=== PATIENT | male | born 1975 | race Hispanic/Latino ===

== ENCOUNTER 2017-06-17 11:05 | Inpatient (IN) | payer BC ==
[2017-06-17 11:17] VITALS: BMI 20.9
--- NOTE | 2017-06-17 11:30 | ED PDOC ---
HPI: General Adult Time Seen by Provider: 06/17/17 11:10 Chief Complaint (Provider): Dizziness History Per: Patient History/Exam Limitations: no limitations Onset/Duration Of Symptoms: Days (Yesterday) Have you had recent travel within the past 21 days to any of the following countries: [place], [place], [place] or [place]?: No Current Symptoms Are (Timing): Still Present Additional Complaint(s): Palpitations, light-headed, headache mild frontal all off and on. No chest pain. Feels dyspnea off and on. No abd pain, nausea, vomit, diarrhea. No leg pain, dysuria. No long distance travel, leg pain, hormone tx. Headaches not the worst in his life. No neck pain. No back pain. No numbness, tingles. Noted his bp in the 140 yesterday and today. Past Medical History Reviewed: Nursing Documentation, Vital Signs Vital Signs: Last Vital Signs Temp 98.1 F 06/17/17 11:08 Pulse 74 06/17/17 11:08 Resp 19 06/17/17 11:08 BP 136/85 06/17/17 11:08 Pulse Ox 92 L 06/17/17 11:32 - Medical History PMH: No Chronic Diseases - Surgical History Surgical History: No Surg Hx - Family History Family History: States: Unknown Family Hx - Living Arrangements Living Arrangements: With Family - Social History Current smoker - smoking cessation education provided: No Alcohol: Occasional Drugs: Denies - Allergies Allergies/Adverse Reactions: Allergies Allergy/AdvReac Type Severity Reaction Status Date / Time No Known Allergies Allergy Verified 06/17/17 11:26 Review of Systems ROS Statement: Except As Marked, All Systems Reviewed And Found Negative Constitutional: Positive for: Weakness (general) Cardiovascular: Positive for: Palpitations Respiratory: Positive for: Shortness of Breath Neurological: Positive for: Weakness, Dizziness Physical Exam - Reviewed Nursing Documentation Reviewed: Yes Vital Signs Reviewed: Yes - Physical Exam Appears: Positive for: Non-toxic, No Acute Distress Skin: Positive for: Normal Color, Warm, DRY Eye Exam: Positive for: EOMI, Normal appearance, PERRL ENT: Positive for: Normal ENT Inspection Neck: Positive for: Normal, Painless ROM, Supple Cardiovascular/Chest: Positive for: Regular Rate, Rhythm. Negative for: Edema Respiratory: Positive for: CNT, Normal Breath Sounds Gastrointestinal/Abdominal: Positive for: Normal Exam, Bowel Sounds, Soft. Negative for: Tenderness Back: Positive for: Normal Inspection. Negative for: L CVA Tenderness, R CVA Tenderness Extremity: Positive for: Normal ROM. 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 Negative for: Motor/Sensory Deficits, Aphasia, Facial Droop - Laboratory Results Result Diagrams: 06/17/17 11:39 06/17/17 11:39 Interpretation Of Abn Labs: no acute - ECG ECG: Positive for: Interpreted By Me, Viewed By Me ECG Rhythm: Positive for: Normal QRS, Normal ST Segment, Sinus Rhythm O2 Sat by Pulse Oximetry: 92 - CT Scan/US head Other Rad Studies (CT/US): Read By Radiologist Other Rad Interpretation: no acute - Progress ED Course And Treament: 1335: Stable. AAOx3. Feels off and on dizzy still and epigastric discomfort. Will give meds and consider admit. 1351: Spoke with Dr. Calero. Will admit tele obs. Disposition - Clinical Impression Clinical Impression: Palpitations, Dizziness - Patient ED Disposition Is Patient to be Admitted: Yes Counseled Patient/Family Regarding: Studies Performed, Diagnosis - Disposition Disposition Time: 13:59 Condition: FAIR - Pt Status Changed To: Hospital Disposition Of: Observation - POA Present On Arrival: None
[2017-06-17] MEDS ORDERED: Sodium Chloride 0.9% 1,000 ML IV STA (11:31)
[2017-06-17 11:50] LABS: BASO % 0.4 % (0.0-2.0); EOS # 0.2 K/uL (0.0-0.7); HEMATOCRIT 48.3 % (35.0-51.0); LYMPH # 1.4 K/uL (1.0-4.3); MEAN CELL VOLUME 88.7 fl (80.0-94.0); MEAN CORPUSCULAR HEMOGLOBIN 28.5 pg (27.0-31.0); MEAN CORPUSCULAR HGB CONC 32.1 g/dL (33.0-37.0); MEAN PLATELET VOLUME 7.5 fl (7.2-11.7); MONO # 0.7 K/uL (0.0-0.8); MONO % 10.2 % (0.0-10.0); NEUT # 4.2 K/uL (1.8-7.0); NEUT % 65.4 % (50.0-75.0); NRBC % 0.1 % (0.0-0.0); RED CELL DISTRIBUTION WIDTH 13.8 % (11.5-14.5); WHITE BLOOD COUNT 6.5 K/uL (4.8-10.8)
[2017-06-17 12:01] LABS: ALB/GLOB RATIO 1.6 (1.0-2.1); ALKALINE PHOSPHATASE 82 U/L (38-126); ALT/SGPT 58 U/L (21-72); AST/SGOT 23 U/L (17-59); BILIRUBIN,TOTAL 0.4 mg/dl (0.2-1.3); BLOOD UREA NITROGEN 14 mg/dl (9-20); CALCIUM 9.5 mg/dL (8.4-10.2); CARBON DIOXIDE 22 mmol/L (22-30); CHLORIDE 107 mmol/L (98-107); GFR AFRICAN-AMERICAN > 60; GLUCOSE,RANDOM 120 mg/dL (75-110); SODIUM 143 mmol/l (132-148); TOTAL PROTEIN 7.8 G/DL (6.3-8.2)
--- NOTE | 2017-06-17 12:31 | CT ---
PROCEDURE: CT HEAD WITHOUT CONTRAST. HISTORY: headache COMPARISON: None available. TECHNIQUE: Axial computed tomography images were obtained through the head/brain without intravenous contrast. Radiation dose: Total exam DLP = 767.40 mGy-cm. This CT exam was performed using one or more of the following dose reduction techniques: Automated exposure control, adjustment of the mA and/or kV according to patient size, and/or use of iterative reconstruction technique. FINDINGS: HEMORRHAGE: No intracranial hemorrhage. BRAIN: No mass effect or edema. No atrophy or chronic microvascular ischemic changes. VENTRICLES: Unremarkable. No hydrocephalus. CALVARIUM: Unremarkable. PARANASAL SINUSES: Unremarkable as visualized. No significant inflammatory changes. MASTOID AIR CELLS: Unremarkable as visualized. No inflammatory changes. OTHER FINDINGS: None. IMPRESSION: Normal CT of the Head. No intracranial mass, hemorrhage or evidence of acute infarct.
[2017-06-18 05:26] LABS: T4 6.67 ug/dl (5.5-11.0)
[2017-06-18 05:39] LABS: THYROID STIMULATING HORMONE 0.02 mIU/ML (0.46-4.68)
--- NOTE | 2017-06-18 07:48 | CARD ---
APPROVED REPORT EKG Measurement Heart [id number] <Conclusion> Normal sinus rhythm Normal ECG
--- NOTE | 2017-06-18 07:56 | CP.PCM.HP ---
History of Present Illness - History of Present Illness History of Present Illness: 41 year old male with no past medical history presented to ED with complaints of palpitations, dyspnea and lightheadedness. He endorses symptoms began about one month ago, but were worsened one day prior to admission. He is physically active and frequents the gym and boxes. He states about a month ago he noticed he was not able to complete warmup and had shortness of breath while boxing. Patient also notes, palpitations shortness of breath and dizziness with associated abdominal discomfort. No alleviating factors. No unintentional weight loss or changes in appetite. He was seen by his PCP, Dr. Gonzalez and had EKG done which revealed some abnormalities as per the patient. He states that he was referred to cardiology, Dr. Randi Shine, which he had not seen as outpatient. No personal or family hx of cardiac or thyroid disease. PMH: denies Medications: none Allergies: NKDA Present on Admission - Present on Admission Any Indicators Present on Admission: No Review of Systems - Constitutional Constitutional: absent: Anorexia, Night Sweats, Weight Loss - EENT Eyes: absent: Blurred Vision, Change in Vision, Photophobia, Spots in Vision Ears: Dizziness. absent: Ear Pain, Disequilibrium Nose/Mouth/Throat: absent: Nasal Congestion, Nasal Discharge - Cardiovascular Cardiovascular: Dyspnea, Palpitations. absent: Chest Pain, Edema, Pedal Edema - Respiratory Respiratory: Dyspnea. absent: Cough - Gastrointestinal Gastrointestinal: absent: Constipation, Diarrhea, Nausea, Vomiting Additional comments: abdominal discomfort - Musculoskeletal Musculoskeletal: absent: Abnormal Gait, Muscle Cramps, Myalgias, Numbness, Tingling - Integumentary Integumentary: absent: Change in Hair, Dry Skin, Rash - Neurological Neurological: Dizziness. absent: Numbness, Loss of Vision, Syncope, Weakness - Psychiatric Psychiatric: absent: Anxiety, Change in Appetite - Endocrine Endocrine: Palpitations. absent: Cold Intolorance, Excessive Sweating - Hematologic/Lymphatic Hematologic: As Per HPI Past Patient History - Past Medical History & Family History Past Medical History?: No - Past Social History Smoking Status: Former Smoker - MUSCULOSKELETAL/RHEUMATOLOGICAL Hx Falls: No - PSYCHIATRIC Hx Substance Use: No - SURGICAL HISTORY Hx Surgeries: No - ANESTHESIA Hx Anesthesia: No (no sx hx) Meds Allergies/Adverse Reactions: Allergies Allergy/AdvReac Type Severity Reaction Status Date / Time No Known Allergies Allergy Verified 06/17/17 11:26 Physical Exam - Constitutional Appears: Non-toxic - Eye Exam Eye Exam: Normal appearance - ENT Exam ENT Exam: Mucous Membranes Moist - Neck Exam Neck exam: Positive for: Normal Inspection - Respiratory Exam Respiratory Exam: Clear to Auscultation Bilateral, NORMAL BREATHING PATTERN - Cardiovascular Exam Cardiovascular Exam: REGULAR RHYTHM, RRR, +S1, +S2. absent: Diastolic murmur, Systolic Murmur - GI/Abdominal Exam GI & Abdominal Exam: Normal Bowel Sounds, Soft. absent: Distended, Guarding, Tenderness - Extremities Exam Extremities exam: Positive for: normal inspection. Negative for: pedal edema - Neurological Exam Neurological exam: Alert, CN II-XII Intact, Normal Gait, Oriented x3 - Psychiatric Exam Psychiatric exam: Normal Affect, Normal Mood - Skin Skin Exam: Dry, Intact, Normal Color, Warm Results - Vital Signs Recent Vital Signs: Last Vital Signs Temp 98.3 F 06/18/17 05:12 Pulse 72 06/18/17 05:12 Resp 18 06/18/17 05:12 BP 115/77 06/18/17 05:12 Pulse Ox 99 06/18/17 05:12 - Labs Result Diagrams: 06/17/17 11:39 06/17/17 11:39 Labs: Laboratory Results - last 24 hr 06/17/17 06/17/17 06/17/17 11:39 11:39 13:43 WBC 6.5 RBC 5.45 Hgb 15.5 Hct 48.3 MCV 88.7 MCH 28.5 MCHC 32.1 L RDW 13.8 Plt Count 294 MPV 7.5 Neut % (Auto) 65.4 Lymph % (Auto) 21.0 Nash % (Auto) 10.2 H Eos % (Auto) 3.0 Baso % (Auto) 0.4 Neut # 4.2 Lymph # 1.4 Nash # 0.7 Eos # 0.2 Baso # 0.0 Sodium 143 Potassium 4.0 Chloride 107 Carbon Dioxide 22 Anion Gap 18 BUN 14 Creatinine 0.7 L Est GFR ( Amer) > 60 Est GFR (Non-Af Amer) > 60 Random Glucose 120 H Calcium 9.5 Total Bilirubin 0.4 AST 23 ALT 58 Alkaline Phosphatase 82 Troponin I < 0.0120 Total Protein 7.8 Albumin 4.8 Globulin 3.0 Albumin/Globulin Ratio 1.6 Triglycerides Cholesterol LDL Cholesterol Direct HDL Cholesterol Lipase 52 Free T4 Thyroxine (T4) Total T3 TSH 3rd Generation 06/17/17 06/17/17 06/17/17 16:35 17:57 23:36 WBC RBC Hgb Hct MCV MCH MCHC RDW Plt Count MPV Neut % (Auto) Lymph % (Auto) Nash % (Auto) Eos % (Auto) Baso % (Auto) Neut # Lymph # Nash # Eos # Baso # Sodium Potassium Chloride Carbon Dioxide Anion Gap BUN Creatinine Est GFR ( Amer) Est GFR (Non-Af Amer) Random Glucose Calcium Total Bilirubin AST ALT Alkaline Phosphatase Troponin I < 0.0120 < 0.0120 Total Protein Albumin Globulin Albumin/Globulin Ratio Triglycerides Cholesterol LDL Cholesterol Direct HDL Cholesterol Lipase Free T4 Thyroxine (T4) Total T3 TSH 3rd Generation < 0.02 L 06/18/17 06/18/17 04:30 04:30 WBC RBC Hgb Hct MCV MCH MCHC RDW Plt Count MPV Neut % (Auto) Lymph % (Auto) Nash % (Auto) Eos % (Auto) Baso % (Auto) Neut # Lymph # Nash # Eos # Baso # Sodium Potassium Chloride Carbon Dioxide Anion Gap BUN Creatinine Est GFR ( Amer) Est GFR (Non-Af Amer) Random Glucose Calcium Total Bilirubin AST ALT Alkaline Phosphatase Troponin I Total Protein Albumin Globulin Albumin/Globulin Ratio Triglycerides 85 Cholesterol 160 LDL Cholesterol Direct 83 HDL Cholesterol 47 Lipase Free T4 0.91 Thyroxine (T4) 6.67 Total T3 1.51 TSH 3rd Generation 0.02 L Assessment & Plan (1) Palpitations Assessment and Plan: 41 year old male with no past medical history, admitted with palpitations, dizziness and shortness of breath. On admission, patients EKG and vital signs were WNL. He appears much better today than on admission. In ED patient appeared pale and uncomfortable. Thyroid studies were done and revealed very suppressed TSH. All other thyroid labs have been negative, u/s was negative. Cardiology evaluated the patient, EKG and Echocardiogram were unremarkable. Symptoms are likely related to thyroid disease. Endocrinology consult: additional thyroid studies ordered. Continue to monitor patient Case d/w Dr. Shine and Dr. Garner Status: Acute (2) Dizziness Assessment and Plan: improved, likely secondary to hyperthyroidism Status: Acute (3) Subclinical hyperthyroidism Assessment and Plan: appears to be etiology of patients symptoms -started pt on tapazole 5mg TID -Tapazole 10 mg daily upon dishcarge Status: Acute (4) DVT prophylaxis Assessment and Plan: scds Status: Acute Comment: scds
[2017-06-18 08:40] LABS: T3 UPTAKE 37.7 % (23.0-41.0); T4 7.1 ug/dl (5.5-11.0)
--- NOTE | 2017-06-18 10:37 | CP.PCM.CON ---
History of Present Illness - History of Present Illness History of Present Illness: This 41-year-old male came into the hospital after experiencing a sense of lightheadedness for a few days. This was not connected to any physical activity or movements of his head or eyes. The patient also reports that he had taken up going to a gym and boxing. He had recently discovered during warmup he used to get fatigued and had to rest. He had not noticed this a few weeks back. He denies any weight loss. He had recently experienced palpitations upon minimal physical activity. He denies any chronic illness in the past and denies hypertension or diabetes and he has never been a smoker. He has not been on any medications. Physical examination shows a young pleasant man well-built and well-nourished. Alert awake and coherent. Afebrile with a pulse rate of 64 bpm and regular and a blood pressure of 118/70 mmHg. His jugular venous pressure was not elevated and there was no edema hour his lower extremity. His pedal pulses were well felt. There were no carotid bruits. The apex was palpable in the 6 to heaving in character. The first and second heart sounds were normal. There was no murmur no gallop no rales. His abdomen was soft liver and spleen are not palpable. His electro-cardiogram showed sinus rhythm with a normal EKG pattern. His echocardiogram showed a normal-sized left ventricle with normal left ventricular systolic function. No significant valvulopathy was detected. His lab data showed a depressed TSH with normal free T4 Impression: No cardiovascular abnormality has been detected so far. Abnormal TSH level may indicate hyperthyroidism which an box toe stitcher is about to address. If patient's symptoms persist even after resolution of abnormal thyroid function he will require a stress test to evaluate his effort tolerance and is response to physical activity. I have explained this to the patient. Past Patient History - Past Medical History & Family History Past Medical History?: No - Past Social History Smoking Status: Former Smoker - MUSCULOSKELETAL/RHEUMATOLOGICAL Hx Falls: No - PSYCHIATRIC Hx Substance Use: No - SURGICAL HISTORY Hx Surgeries: No - ANESTHESIA Hx Anesthesia: No (no sx hx) Meds Allergies/Adverse Reactions: Allergies Allergy/AdvReac Type Severity Reaction Status Date / Time No Known Allergies Allergy Verified 06/17/17 11:26 - Medications Medications: Current Medications Acetaminophen (Tylenol 325mg Tab) 650 mg PO Q6 PRN PRN Reason: Headache Famotidine (Pepcid) 20 mg PO DAILY [facility] Last Admin: 06/18/17 08:24 Dose: 20 mg Meclizine HCl (Antivert) 12.5 mg PO BID PRN PRN Reason: Dizziness Results - Vital Signs Recent Vital Signs: Last Vital Signs Temp 98.2 F 06/18/17 08:00 Pulse 57 L 06/18/17 08:00 Resp 20 06/18/17 08:00 BP 121/82 06/18/17 08:00 Pulse Ox 98 06/18/17 08:00 - Labs Result Diagrams: 06/17/17 11:39 06/17/17 11:39 Labs: Laboratory Results - last 24 hr 06/17/17 06/17/17 06/17/17 11:39 11:39 13:43 WBC 6.5 RBC 5.45 Hgb 15.5 Hct 48.3 MCV 88.7 MCH 28.5 MCHC 32.1 L RDW 13.8 Plt Count 294 MPV 7.5 Neut % (Auto) 65.4 Lymph % (Auto) 21.0 Powell % (Auto) 10.2 H Eos % (Auto) 3.0 Baso % (Auto) 0.4 Neut # 4.2 Lymph # 1.4 Powell # 0.7 Eos # 0.2 Baso # 0.0 Sodium 143 Potassium 4.0 Chloride 107 Carbon Dioxide 22 Anion Gap 18 BUN 14 Creatinine 0.7 L Est GFR ( Amer) > 60 Est GFR (Non-Af Amer) > 60 Random Glucose 120 H Calcium 9.5 Total Bilirubin 0.4 AST 23 ALT 58 Alkaline Phosphatase 82 Troponin I < 0.0120 Total Protein 7.8 Albumin 4.8 Globulin 3.0 Albumin/Globulin Ratio 1.6 Triglycerides Cholesterol LDL Cholesterol Direct HDL Cholesterol Lipase 52 Free T4 Thyroxine (T4) Total T3 T3 Uptake TSH 3rd Generation 06/17/17 06/17/17 06/17/17 16:35 17:57 23:36 WBC RBC Hgb Hct MCV MCH MCHC RDW Plt Count MPV Neut % (Auto) Lymph % (Auto) Powell % (Auto) Eos % (Auto) Baso % (Auto) Neut # Lymph # Powell # Eos # Baso # Sodium Potassium Chloride Carbon Dioxide Anion Gap BUN Creatinine Est GFR ( Amer) Est GFR (Non-Af Amer) Random Glucose Calcium Total Bilirubin AST ALT Alkaline Phosphatase Troponin I < 0.0120 < 0.0120 Total Protein Albumin Globulin Albumin/Globulin Ratio Triglycerides Cholesterol LDL Cholesterol Direct HDL Cholesterol Lipase Free T4 Thyroxine (T4) Total T3 T3 Uptake TSH 3rd Generation < 0.02 L 06/18/17 06/18/17 06/18/17 04:30 04:30 08:05 WBC RBC Hgb Hct MCV MCH MCHC RDW Plt Count MPV Neut % (Auto) Lymph % (Auto) Powell % (Auto) Eos % (Auto) Baso % (Auto) Neut # Lymph # Powell # Eos # Baso # Sodium Potassium Chloride Carbon Dioxide Anion Gap BUN Creatinine Est GFR ( Amer) Est GFR (Non-Af Amer) Random Glucose Calcium Total Bilirubin AST ALT Alkaline Phosphatase Troponin I Total Protein Albumin Globulin Albumin/Globulin Ratio Triglycerides 85 Cholesterol 160 LDL Cholesterol Direct 83 HDL Cholesterol 47 Lipase Free T4 0.91 Thyroxine (T4) 6.67 7.10 Total T3 1.51 1.55 T3 Uptake 37.7 TSH 3rd Generation 0.02 L
--- NOTE | 2017-06-18 11:10 | CARD ---
APPROVED REPORT EXAM: Two-dimensional and M-mode echocardiogram with Doppler and color Doppler. Other Information Quality : GoodRhythm : NSR INDICATION Chest Pain 2D DIMENSIONS IVSd0.49 (0.7-1.1cm)LVDd5.23 (3.9-5.9cm) LVOT Diameter2.14 (1.8-2.4cm)PWd0.74 (0.7-1.1cm) IVSs1.06 (0.8-1.2cm)LVDs3.40 (2.5-4.0cm) FS (%) 34.9 %PWs1.19 (0.8-1.2cm) M-Mode DIMENSIONS Left Atrium (MM)3.27 (2.5-4.0cm)IVSd0.81 (0.7-1.1cm) Aortic Root2.94 (2.2-3.7cm)LVDd5.16 (4.0-5.6cm) Aortic Cusp Exc.1.96 (1.5-2.0cm)PWd0.74 (0.7-1.1cm) IVSs1.19 cmFS (%) 33 % LVDs3.44 (2.0-3.8cm)PWs1.10 cm Mitral Valve MV E Obpzmqlw91.0cm/sMV DECEL [id number] A Qicnychd68.2cm/s MV OCJ65ocX/A ratio1.2MVA (PHT)4.31cm2 TDI E/Lateral E'0.0E/Medial E'0.0 Pulmonary Valve PV Peak Vbyiiyqr30.5cm/s LEFT VENTRICLE The left ventricle is normal size. There is normal left ventricular wall thickness. Left ventricle systolic function is normal. The Ejection Fraction is 60-65%. There is normal LV segmental wall motion. The left ventricular diastolic function is normal. RIGHT VENTRICLE The right ventricle is normal size. There is normal right ventricular wall thickness. The right ventricular systolic function is normal. ATRIA The left atrium size is normal. The right atrium size is normal. AORTIC VALVE The aortic valve is normal in structure. No aortic regurgitation is present. There is no aortic valvular stenosis. MITRAL VALVE The mitral valve is normal in structure. There is no evidence of mitral valve prolapse. There is no mitral valve stenosis. Mitral regurgitation is trace. TRICUSPID VALVE The tricuspid valve is normal in structure. There is no tricuspid valve regurgitation noted. PULMONIC VALVE The pulmonary valve is normal in structure. There is no pulmonic valvular regurgitation. GREAT VESSELS The aortic root is normal in size. The IVC is normal in size and collapses >50% with inspiration. PERICARDIAL EFFUSION The pericardium appears normal. <Conclusion> The left ventricle is normal size. There is normal left ventricular wall thickness. There is normal LV segmental wall motion. Left ventricle systolic function is normal. The Ejection Fraction is 60-65%. The left ventricular diastolic function is normal.
--- NOTE | 2017-06-18 15:27 | US ---
HISTORY: r/o goiter TECHNIQUE: Sonographic evaluation of the thyroid gland. COMPARISON: Not available FINDINGS: RIGHT LOBE: Measures 5.0 x 1.2 x 1.2 cm. Normal echotexture and flow. Nodules: None LEFT LOBE: Measures 4.0 x 0.8 x 1.4 cm. Normal echotexture and flow. Nodules: None ISTHMUS: Measures 0.1 cm. Normal echotexture and flow. Nodules: None OTHER FINDINGS: None . IMPRESSION: Unremarkable thyroid sonogram.
[2017-06-18] MEDS: methIMAzole 5 MG TAB PO SCH (17:00)
[2017-06-19 00:31] VITALS: RESP 18
--- NOTE | 2017-06-19 04:46 | CON ---
ENDOCRINOLOGY CONSULTATION DATE: HISTORY OF PRESENT ILLNESS: This is a 41-year-old male with no apparent medical history presenting here with progressively worsening palpitations and supervening dizziness and lightheadedness, worse on the day of admission and is now being referred for evaluation of abnormal thyroid function studies. PAST MEDICAL HISTORY: Essentially unremarkable. MEDICATIONS: Has no medications otherwise at this time. SOCIAL HISTORY: The patient has supportive family. No known substance use. 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 FAMILY HISTORY: No known thyroid endocrinopathy. REVIEW OF SYSTEMS: Admits to generalized body weakness with easy fatigability and tiredness and suboptimal energy level. Also admits to progressively worsening dizziness and lightheadedness especially on the day of admission. Admits to precordial chest pain with palpitations and progressive shortness of breath, initially with exertion and then at rest with occasional paroxysmal nocturnal dyspnea. His oral intake has been variable with nausea, dyspepsia, and vague upper abdominal pain. Also admits to occasional hyperdefecation. PHYSICAL EXAMINATION: NECK: Supple. Thyroid gland shows diffuse thyromegaly which is smooth and nontender and moves with swallowing as noted. There are no thyroid bruits of note. LABORATORY DATA: Lab work showed that total T4 is 7.10 with a T3 of 1.55 and a free T4 of 0.91 and a TSH of 0.02. ASSESSMENT: This is a 41-year-old male with subclinical hyperthyroidism, most likely related to underlying Graves disease with concomitant diffuse toxic goiter and no overt compressive or metabolic symptoms thereof. PLAN OF MANAGEMENT: As discussed with the patient is that we will keep him overnight to observe his initial response to the Tapazole medication that is given. We will initiate Tapazole given as 5 mg p.o. t.i.d. *------*. We will observe his metabolic and clinical response, and *------* discharge tomorrow morning as indicated. We will discuss with the patient regarding the need for outpatient followup and dose adjustment as indicated. We will obtain a thyroid ultrasound to fully delineate the presence of underlying toxic goiter. We will follow up with you. Andra Garner MD
[2017-06-19 05:25] VITALS: O2SAT 100
[2017-06-19 06:34] LABS: POTASSIUM 4.1 MMOL/L (3.6-5.0)
[2017-06-19 06:41] LABS: ALB/GLOB RATIO 1.5 (1.0-2.1); ALKALINE PHOSPHATASE 68 U/L (38-126); ALT/SGPT 51 U/L (21-72); AST/SGOT 20 U/L (17-59); BILIRUBIN,TOTAL 0.4 mg/dl (0.2-1.3); BLOOD UREA NITROGEN 16 mg/dl (9-20); CALCIUM 9.1 mg/dL (8.4-10.2); CARBON DIOXIDE 26 mmol/L (22-30); CHLORIDE 106 mmol/L (98-107); GFR AFRICAN-AMERICAN > 60; GLUCOSE,RANDOM 107 mg/dL (75-110); SODIUM 143 mmol/l (132-148); TOTAL PROTEIN 7.2 G/DL (6.3-8.2)
[2017-06-19 06:47] LABS: T4 5.66 ug/dl (5.5-11.0)
[2017-06-19 07:01] LABS: THYROID STIMULATING HORMONE 0.04 mIU/ML (0.46-4.68)
--- NOTE | 2017-06-19 08:02 | CP.PCM.PN ---
Subjective - Date & Time of Evaluation Date of Evaluation: 06/19/17 Time of Evaluation: 08:00 - Subjective Subjective: Patient seen and examined with Dr. Calero No acute overnight events. Patient is feeling much better. No complaints. Started on Tapazole by Dr. Garner. Follow up thyroid labs, TSH remains low. Objective - Vital Signs/Intake and Output Vital Signs (last 24 hours): Temp Pulse Resp BP Pulse Ox 97.9 F 56 L 18 122/76 100 06/19/17 05:25 06/19/17 05:25 06/19/17 05:25 06/19/17 05:25 06/19/17 05:25 - Medications Medications: Current Medications Acetaminophen (Tylenol 325mg Tab) 650 mg PO Q6 PRN PRN Reason: Headache Famotidine (Pepcid) 20 mg PO DAILY [facility] Last Admin: 06/18/17 08:24 Dose: 20 mg Meclizine HCl (Antivert) 12.5 mg PO BID PRN PRN Reason: Dizziness Methimazole (Tapazole) 5 mg PO TID [facility] Last Admin: 06/18/17 17:00 Dose: 5 mg - Labs Labs: 06/17/17 11:39 06/19/17 04:20 - Constitutional Appears: Non-toxic, No Acute Distress - Head Exam Head Exam: ATRAUMATIC, NORMAL INSPECTION, NORMOCEPHALIC - Eye Exam Eye Exam: EOMI, Normal appearance, PERRL - Respiratory Exam Respiratory Exam: Clear to Ausculation Bilateral, NORMAL BREATHING PATTERN - Cardiovascular Exam Cardiovascular Exam: REGULAR RHYTHM, +S1, +S2. absent: Bradycardia, Tachycardia , Irregular Rhythm, Murmur - GI/Abdominal Exam GI & Abdominal Exam: Soft, Normal Bowel Sounds. absent: Tenderness - Extremities Exam Extremities Exam: Full ROM, Normal Capillary Refill, Normal Inspection. absent : Joint Swelling, Pedal Edema - Neurological Exam Neurological Exam: Alert, Awake, CN II-XII Intact, Normal Gait, Oriented x3 - Psychiatric Exam Psychiatric exam: Normal Affect, Normal Mood - Skin Skin Exam: Dry, Intact, Normal Color, Warm Assessment and Plan (1) Subclinical hyperthyroidism Assessment & Plan: 41 year old male with no past medical history, admitted with palpitations, dizziness and shortness of breath that have resolved. Feeling much better. Thyroid studies: low TSH, t3,t4 within normal limits, u/s thryoid was unremarkable. pending further workup. Cardiology consult noted and appreciated. EKG and Echocardiogram were unremarkable. Symptoms are likely related to thyroid disease. Endocrinology consult noted and appreciated. Started pt on tapazole 5mg TID. Tapazole 10 mg daily upon discharge. Status: Acute (2) Palpitations Status: Resolved (3) Dizziness Status: Resolved (4) DVT prophylaxis Assessment & Plan: scds Status: Acute
[2017-06-19] MEDS: methIMAzole 5 MG TAB PO SCH (08:43)
[2017-06-19 12:40] VITALS: BP 106/65; PULSE 62; TEMP 97.9
--- NOTE | 2017-06-19 17:10 | PN ---
ENDOCRINOLOGY FOLLOWUP NOTE LOCATION: He is in room 418. SUBJECTIVE: This is a 41-year-old male with recent onset of palpitations and precordial chest pain and currently being followed closely for metabolic management. He has been evaluated to a recent onset of subclinical hyperthyroidism as noted chemically and biochemically thereof. His latest chemistry shows a BUN of 16, sodium 143, potassium 4.1, chloride 106, CO2 of 26, glucose 107, and creatinine is 0.7. His repeat thyroid study showed a T4 of 5.66 with a TSH of 0.04 and a free T4 of 0.91. So, at this time, we will recommend a low-dose methimazole medication given as 10 mg once daily as ordered. We will titrate incremental as indicated to optimize metabolic control. He will follow with his medical doctor for outpatient medical and thyroid management. We would also recommend a thyroid ultrasound for outpatient testing to fully delineate the thyroid lobe dimensions. Andra Garner MD
[2017-06-22 17:48] LABS: TSI <89 % baseline (<140)
== END 2017-06-19 13:23 | disposition home or self-care (01) | DRG 645 ==
LOC: H.ER 11:05 → H.ERHOLD 14:00 → OBSVTOIN 14:00 → H.TEL 15:17
PROVIDERS: ADMIT Internal Medicine; ATTEND Internal Medicine
DX: E05.00 Thyrotoxicosis with diffuse goiter without thyrotoxic crisis or storm (principal)

== ENCOUNTER 2018-11-10 15:50 | Emergency (ER) | payer OTHER ==
[2018-11-10 15:50] VITALS: BMI 20.9
[2018-11-10] MEDS ORDERED: Sodium Chloride 0.9% 1,000 ML IV STA (16:38)
--- NOTE | 2018-11-10 16:52 | ED PDOC ---
HPI: Chest Pain Time Seen by Provider: 11/10/18 16:03 Chief Complaint (Nursing): Palpitations Chief Complaint (Provider): Palpitations History Per: Patient History/Exam Limitations: no limitations Onset/Duration Of Symptoms: Other (one month) Current Symptoms Are (Timing): Intermittent Episodes Additional Complaint(s): 43 year old male with hyperthyroidism presents to the ED for an evaluation of palpitations that is intermittent onset for one month. Today, while at work, the palpitations occurred again while sitting in the ED doing a 1:1 observation. Patient felt lightheaded and dizziness with sweats. He felt it was due to not eating so patient ate and the symptoms continued, worsening since onset. He further admits he has had a similar symptom in the past when he was diagnosed with hyperthyroidism in 2001. He was started on medication in the ED and the thyroid normalized so he was taken off the medications. He has not taken the medications for a year. He also suspects that he may have been given regular coffee rather than decaf today, and that he has also felt this way in the past from caffeine. Otherwise, he denies shortness of breath, chest pain or any recurrent illness. Of note, patient felt well prior to the onset of symptoms. PMD: non CPH Provider Past Medical History Reviewed: Historical Data, Nursing Documentation, Vital Signs Vital Signs: Last Vital Signs Temp Pulse 77 11/10/18 15:56 Resp 16 11/10/18 15:56 BP Pulse Ox - Medical History PMH: Hyperthyroidism - Surgical History Surgical History: No Surg Hx - Family History Family History: States: Unknown Family Hx - Social History Current smoker - smoking cessation education provided: No Alcohol: None Drugs: Denies - Home Medications Home Medications: Ambulatory Orders Medication Instructions Recorded methIMAzole [Tapazole] 10 mg PO DAILY #30 tab 06/19/17 Ibuprofen [Motrin] 600 mg PO TID 7 Days tab 04/04/18 - Allergies Allergies/Adverse Reactions: Allergies Allergy/AdvReac Type Severity Reaction Status Date / Time No Known Allergies Allergy Verified 11/10/18 15:56 Review of Systems ROS Statement: Except As Marked, All Systems Reviewed And Found Negative (As per HPI, otherwise negative) Constitutional: Positive for: Sweats. Negative for: Chills Cardiovascular: Positive for: Palpitations, Light Headedness. Negative for: Chest Pain Respiratory: Negative for: Shortness of Breath Neurological: Positive for: Dizziness Physical Exam - Reviewed Nursing Documentation Reviewed: Yes Vital Signs Reviewed: Yes - Physical Exam Appears: Positive for: Uncomfortable, In Acute Distress Head Exam: Positive for: ATRAUMATIC, NORMOCEPHALIC Skin: Positive for: Warm, Dry Eye Exam: Positive for: EOMI, PERRL ENT: Positive for: Pharynx Is (clear ), Other (tacky mucous membrane ) Neck: Positive for: Painless ROM, Supple Cardiovascular/Chest: Positive for: Regular Rate, Rhythm. Negative for: Murmur Respiratory: Positive for: Normal Breath Sounds. Negative for: Respiratory Distress Gastrointestinal/Abdominal: Positive for: Soft. Negative for: Tenderness Back: Positive for: Normal Inspection. Negative for: Decreased ROM Extremity: Positive for: Normal ROM. Negative for: Deformity Lymphatic: Negative for: Adenopathy Neurological/Psych: Positive for: Awake, Alert, Normal Tone, Oriented (x3). Negative for: Motor/Sensory Deficits - Laboratory Results Result Diagrams: 11/10/18 16:20 11/10/18 16:20 - ECG Pulse Ox Interpretation: Normal Medical Decision Making Medical Decision Making: Time: 16:03 Impression: Palpitations Differential Diagnosis: dehydration, electrolyte abnormalities, thyroid disorder, vertigo Plan: BBK type and screen EKG B-type natriuretic peptide CMP Free T4 Stat FT3 stat Magnesium Phosphorus T3 stat T4 stat Thyroid stimulating hormone ED urine dipstick CBC w/ differential PTT Prothrombin time Glucose, POC, Routine Normal Saline 1000 mls/hr IV insertion Scribe Attestation: Documented by Marva Nunez, acting as a scribe for Roberta Glover MD Provider Scribe Attestation: All medical record entries made by the Scribe were at my direction and personally dictated by me. I have reviewed the chart and agree that the record accurately reflects my personal performance of the history, physical exam, medical decision making, and the department course for this patient. I have also personally directed, reviewed, and agree with the discharge instructions and disposition. Disposition - Clinical Impression Clinical Impression: Palpitations, Hypokalemia Counseled Patient/Family Regarding: Studies Performed, Diagnosis, Need For Followup - Disposition Disposition: Routine/Home Disposition Time: 18:30 Condition: STABLE Additional Instructions: FOLLOWUP WITH YOUR DOCTOR TOMORROW FOR FURTHER EVALUATION Instructions: Hypokalemia (DC), Palpitations (DC) Forms: [facility] ED School/Work Excuse
[2018-11-10 17:33] LABS: BASO % 0.3 % (0.0-2.0); EOS % 0.5 % (0.0-4.0); HEMOGLOBIN 14.9 g/dL (12.0-18.0); LYMPH # 0.8 K/uL (1.0-4.3); LYMPH % 8.5 % (20.0-40.0); MEAN CELL VOLUME 88.1 fl (80.0-94.0); MEAN CORPUSCULAR HEMOGLOBIN 29.3 pg (27.0-31.0); MEAN CORPUSCULAR HGB CONC 33.2 g/dL (33.0-37.0); MEAN PLATELET VOLUME 7.5 fl (7.2-11.7); MONO # 0.4 K/uL (0.0-0.8); MONO % 4.6 % (0.0-10.0); NEUT # 8.2 K/uL (1.8-7.0); NEUT % 86.1 % (50.0-75.0); NRBC % 0.1 % (0.0-0.0); PLATELET COUNT 332 K/uL (130-400); RBC 5.11 Mil/uL (4.40-5.90); RED CELL DISTRIBUTION WIDTH 13.9 % (11.5-14.5); WHITE BLOOD COUNT 9.5 K/uL (4.8-10.8)
[2018-11-10 17:41] LABS: PROTHROMBIN TIME 11.1 Seconds (9.8-13.1)
[2018-11-10 17:42] LABS: ALB/GLOB RATIO 1.6 (1.0-2.1); ALBUMIN 4.7 g/dL (3.5-5.0); ALT/SGPT 33 U/L (21-72); AST/SGOT 22 U/L (17-59); BLOOD UREA NITROGEN 11 mg/dl (9-20); CALCIUM 9.3 mg/dL (8.4-10.2); GFR NON-AFRICAN AMERICAN > 60
[2018-11-10 17:43] LABS: PARTIAL THROMBOPLASTIN TIME 36.3 Seconds (25.6-37.1)
[2018-11-10] MEDS ORDERED: Potassium Chloride 20 mEq ER Tab PO STA (17:51)
[2018-11-10 18:00] LABS: B-TYPE NATRIURETIC PEPTIDE 26.5 pg/ml (0-450)
[2018-11-10] MEDS ORDERED: Potassium Chloride 20 mEq ER Tab PO ONE (18:10)
[2018-11-10 19:24] VITALS: BP 122/74; PULSE 67; RESP 18; TEMP 98.5; O2SAT 99
[2018-11-10 19:45] LABS: BANDS 2 % (0-2); EOSINOPHIL 2 % (0-7); LYMPHOCYTE 9 % (20-50); MONOCYTE 4 % (0-10); NEUTROPHIL 83 % (42-75); TOTAL CELLS COUNTED 100
[2018-11-10 19:46] LABS: PLATELET ESTIMATE NORMAL (NORMAL)
--- NOTE | 2018-11-11 08:59 | CARD ---
APPROVED REPORT Date of service: 11/10/2018 EKG Measurement Heart [id number] <Conclusion> Normal sinus rhythm with sinus arrhythmia Normal Electrocardiogram
== END 2018-11-10 19:22 | disposition home or self-care (01) ==
LOC: H.ER 15:50
DX: E87.6 Hypokalemia (principal); R00.2 Palpitations
CPT/HCPCS: 80053; 82948; 83735; 83880; 84100; 84436; 84443; 84481; 84484; 85025; 85610; 85730; 86850; 86900; 93005; 96360; 99283; J7030